=== PATIENT | female | born 2000 | race African-American/Black ===

== ENCOUNTER 2021-12-25 07:43 | Emergency (ER) | payer OTHER, SELFPAY ==
[~2021-12-25] VITALS: Ht 162.6 cm; Wt 60.1 kg
[2021-12-25 07:43] VITALS: BP 111/67
[2021-12-25] MEDS ORDERED: NOXI1TAB PO (07:57)
[2021-12-25] MEDS ORDERED: PRENMIS3 PO (07:57)
[2021-12-25 09:00] LABS: BASO % 0.7 % (0.0-1.0); EOS # 0.1 10^3/uL (0.0-0.5); EOS % 1.3 % (0.0-3.0); HEMATOCRIT 41.4 % (36.0-47.0); HEMOGLOBIN 13.7 g/dl (12.0-15.5); LYMPH # 1.6 10^3/uL (1.5-5.0); LYMPH % 25.9 % (24.0-44.0); MEAN CORPUSCULAR HEMOGLOBIN 31.1 pg (27.0-33.0); MEAN CORPUSCULAR HGB CONC 33.1 g/dl (32.0-36.5); MEAN CORPUSCULAR VOLUME 94.1 fl (80.0-96.0); MONO # 0.4 10^3/uL (0.0-0.8); MONO % 5.9 % (2.0-8.0); NEUTROPHILS # 4.1 10^3/uL (1.5-8.5); PLATELET COUNT, AUTOMATED 177 10^3/uL (150-450); WHITE BLOOD COUNT 6.1 10^3/uL (4.0-10.0)
[2021-12-25 09:04] LABS: BILIRUBIN, URINE MANUAL NEGATIVE (NEGATIVE); GLUCOSE, URINE (UA) MANUAL NEGATIVE (NEGATIVE); KETONE, URINE MANUAL NEGATIVE (NEGATIVE); UROBILINOGEN, URINE MANUAL NORMAL (NORMAL)
[2021-12-25 09:18] LABS: RBC, URINE TNTC /hpf (0-3); SQUAMOUS EPITHELIAL CELL URINE MOD AMOUNT /hpf (SMALL AMT)
[2021-12-25 09:19] LABS: BACTERIA, URINE SMALL AMOUNT; HYALINE CAST, URINE NONE SEEN /lpf (0-1)
[2021-12-25 09:43] LABS: BLOOD UREA NITROGEN 14 MG/DL (7-18); CALCIUM LEVEL 9.3 MG/DL (8.5-10.1); CARBON DIOXIDE LEVEL 29 MEQ/L (21-32); CHLORIDE LEVEL 109 MEQ/L (98-107); GLUCOSE, FASTING 81 MG/DL (70-100); HCG, SERUM QUANTITATIVE < 1.0 MIU/ML; POTASSIUM SERUM 3.8 MEQ/L (3.5-5.1); SODIUM LEVEL 142 MEQ/L (136-145)
== END 2021-12-25 11:08 | disposition left against medical advice (07) ==
LOC: M ED 07:43
DX: Z53.21 Procedure and treatment not carried out due to patient leaving prior to being seen by health care provider (principal)

== ENCOUNTER → 2021-12-25 | Outpatient (REF) | payer OTHER, SELFPAY ==
[~2021-12-25] MED LIST: NOXI1TAB PO; PRENMIS3 PO
[2021-12-25 17:40] LABS: APPEARANCE, URINE CLOUDY (CLEAR); BACTERIA, URINE AUTO 1+ (NEGATIVE); BILIRUBIN, URINE AUTO NEGATIVE (NEGATIVE); BLOOD, URINE BLOOD 3+ (NEGATIVE); COLOR, URINE AMBER (YELLOW); GLUCOSE, URINE (UA) AUTO NEGATIVE (NEGATIVE); KETONE, URINE AUTO NEGATIVE (NEGATIVE); LEUKOCYTE ESTERASE, URINE AUTO 1+ (NEGATIVE); NITRITE, URINE AUTO NEGATIVE (NEGATIVE); PROTEIN, URINE AUTO 2+ mg/dL (NEGATIVE); RBC, URINE AUTO TNTC /HPF (0-3); SPECIFIC GRAVITY URINE AUTO 1.021 (1.002-1.035); SQUAMOUS EPITHELIAL CELL UR AU 10 /HPF (0-6); WBC, URINE AUTO TNTC /HPF (0-3)
[2021-12-25 17:43] LABS: URINE PREG TEST NEGATIVE (NEGATIVE)
== END ==
LOC: M LAB REF 16:25
PROVIDERS: ATTEND Physician Assistant
DX: N39.0 Urinary tract infection, site not specified (principal)

== ENCOUNTER 2022-10-20 09:34 | Emergency (ER) | payer OTHER ==
[~2022-10-20] VITALS: Ht 162.6 cm; Wt 62.5 kg
[2022-10-20] MEDS ORDERED: ALBUTEROL 90 MCG/ACT 8GM HFA INHALER INH ONE (12:15)
[2022-10-20 12:51] LABS: RSV AMPLIFICATION NEGATIVE (NEGATIVE)
[2022-10-20] MEDS ORDERED: VENTAER INH (13:18)
[2022-10-20] MEDS ORDERED: GUAI100L6 PO (13:18)
[2022-10-20 13:22] VITALS: BP 121/75
== END 2022-10-20 13:26 | disposition home or self-care (01) ==
LOC: M ED 09:34
DX: O99.511 Diseases of the respiratory system complicating pregnancy, first trimester (principal); J20.9 Acute bronchitis, unspecified; R06.2 Wheezing; Z3A.14 14 weeks gestation of pregnancy

== ENCOUNTER 2023-01-17 09:55 | Outpatient (CLI) | payer OTHER ==
[~2023-01-17] VITALS: Ht 162.6 cm; Wt 74.1 kg
[~2023-01-17 09:55] MED LIST changes: +GUAI100L6 PO; +VENTAER INH
[2023-01-17 10:06] VITALS: BP 132/76
[2023-01-17] MEDS ORDERED: HOME MED LIST COMPLETE! XX SCH (10:10)
== END 2023-01-17 11:15 | disposition home or self-care (01) ==
LOC: M LDO 09:55
PROVIDERS: ATTEND Obstetrics & Gynecology
DX: O46.92 Antepartum hemorrhage, unspecified, second trimester (principal); Z3A.27 27 weeks gestation of pregnancy
CPT/HCPCS: 59025; G0463

== ENCOUNTER 2023-03-31 07:32 | Inpatient (IN) | payer OTHER ==
[~2023-03-31] VITALS: Ht 162.6 cm; Wt 84.6 kg
[2023-03-31] VITALS (18 sets, daily range): BP systolic 128–184; BP diastolic 61–104
[2023-03-31] MEDS ORDERED: FERR325T3 PO (07:57)
[2023-03-31] MEDS ORDERED: URSO300C3 PO (07:58)
[2023-03-31] MEDS ORDERED: HOME MED LIST COMPLETE! XX SCH (08:00)
[2023-03-31] MEDS ORDERED: CARBOPROST TROMETHAMINE 250 MCG/ML AMP IM PRN (08:50)
[2023-03-31] MEDS ORDERED: LIDOCAINE 1% MDV 20ML VIAL INFIL PRN (08:50)
[2023-03-31] MEDS: LR 1,000 ML IV SCH ×3 (08:50→23:57)
[2023-03-31] MEDS ORDERED: TRANEXAMIC ACID INJection 1,000 MG in NS 100 ML IV PRN (08:50)
[2023-03-31] MEDS ORDERED: OXYTOCIN DRIP 30 UNITS in IV 1 EA IV PRN ×4 (08:50)
[2023-03-31] MEDS ORDERED: METHYLERGONOVINE MALEATE 0.2MG/ML 1ML VIAL IM PRN (08:50)
[2023-03-31] MEDS: miSOPROStol 50MCG 1/2 TABLET BUC SCH ×4 (09:02→23:25)
[2023-03-31 09:23] LABS: HEMATOCRIT 32.6 % (36.0-47.0); HEMOGLOBIN 10.2 g/dl (12.0-15.5); MEAN CORPUSCULAR HEMOGLOBIN 26.5 pg (27.0-33.0); MEAN CORPUSCULAR HGB CONC 31.3 g/dl (32.0-36.5); MEAN CORPUSCULAR VOLUME 84.7 fl (80.0-96.0); PLATELET COUNT, AUTOMATED 241 10^3/uL (150-450); RED BLOOD COUNT 3.85 10^6/uL (4.00-5.40)
[2023-03-31 12:23] LABS: ALBUMIN 2.7 G/DL (3.2-5.2); ALKALINE PHOSPHATASE 180 U/L (46-116); ALT/SGPT 13 U/L (7.0-40); AST/SGOT 15 U/L (<34); BILIRUBIN,TOTAL 0.5 MG/DL (0.3-1.2); BLOOD UREA NITROGEN 6 MG/DL (9-23); CALCIUM LEVEL 8.9 MG/DL (8.5-10.1); CARBON DIOXIDE LEVEL 21 MMOL/L (20-31); CHLORIDE LEVEL 107 MMOL/L (98-107); CREATININE FOR GFR 0.54 MG/DL (0.55-1.30); GLOMERULAR FILTRATION RATE > 60.0 (>60); GLUCOSE, FASTING 78 MG/DL (60-100); POTASSIUM SERUM 3.9 MMOL/L (3.5-5.1); SODIUM LEVEL 139 MMOL/L (136-145); TOTAL PROTEIN 6.4 G/DL (5.7-8.2)
[2023-03-31 13:30] LABS: TOTAL PROTEIN,RANDOM URINE 15.7 MG/DL (0.0-14.0)
[2023-03-31 13:35] LABS: CREATININE,RANDOM URINE 138.3 MG/DL
[2023-03-31] MEDS: ursodioL 300MG CAP PO SCH (21:13)
[2023-03-31] MEDS ORDERED: NALBUPHINE HCL 1MG/0.1ML (100MG/10ML) MDV IV PRN (23:30)
[2023-04-01] VITALS (39 sets, daily range): BP systolic 116–190; BP diastolic 59–106; O2SAT 98
[2023-04-01] MEDS: ursodioL 300MG CAP PO SCH (08:35)
[2023-04-01] MEDS ORDERED: PROMETHAZINE 25MG/ML 1ML VIAL IV ONE (09:30)
[2023-04-01] MEDS ORDERED: NALBUPHINE HCL 1MG/0.1ML (100MG/10ML) MDV IV PRN (09:30)
[2023-04-01] MEDS: LR 1,000 ML IV SCH ×2 (12:18→18:50)
[2023-04-01] MEDS ORDERED: NALOXONE INJ 0.4MG/1ML VIAL IV PRN (12:35)
[2023-04-01] MEDS ORDERED: EPIDURAL/PCA KEYS XX PRN (12:35)
[2023-04-01] MEDS ORDERED: LR 500 ML IV PRN (12:35)
[2023-04-01] MEDS ORDERED: FENTANYL/ROPIVACAINE/NACL BAG 100 ML EPIDURAL SCH (12:35)
[2023-04-01] MEDS ORDERED: ePHEDrine SULFATE 25 MG/5 ML(5MG/ML) SYRINGE IVP PRN (12:35)
[2023-04-01] MEDS ORDERED: diphenhydrAMINE 50MG/ML VIAL IV PRN (12:35)
[2023-04-01] MEDS ORDERED: ONDANSETRON 4MG 2ML VIAL IV PRN ×2 (12:35→18:50)
[2023-04-01 18:38] LABS: CORD GAS ABE V -8.9; CORD GAS HCO3 V 20.7 MMOL/L; CORD GAS O2 SAT V 50.1 %; CORD GAS PCO2 V 59.9 mmHg; CORD GAS PH V 7.156 UNITS; CORD GAS PO2 V 24.9 mmHg; CORD GAS SBC V 16.4 MMOL/L; CORD GAS TCO2 V 22.5 MMOL/L
[2023-04-01 18:41] LABS: CORD GAS ABE A -8.7; CORD GAS HCO3 A 19.7 MMOL/L; CORD GAS O2 SAT A 76.3 %; CORD GAS PCO2 A 51.5 mmHg; CORD GAS PH A 7.2 UNITS; CORD GAS PO2 A 36.6 mmHg; CORD GAS SBC A 17.2 MMOL/L; CORD GAS TCO2 A 21.3 MMOL/L
[2023-04-01] MEDS ORDERED: METHYLERGONOVINE MALEATE 0.2MG/ML 1ML VIAL IM PRN (18:50)
[2023-04-01] MEDS: IBUPROFEN 800 MG TAB PO SCH (18:50)
[2023-04-01] MEDS ORDERED: METOCLOPRAMIDE INJ 10MG/2ML VIAL IV PRN (18:50)
[2023-04-01] MEDS ORDERED: DIBUCAINE 1% OINTMENT 30GM TOP PRN (18:50)
[2023-04-01] MEDS ORDERED: OXYTOCIN DRIP 30 UNITS in IV 1 EA IV SCH (18:50)
[2023-04-01] MEDS ORDERED: RHOGAM 300MCG (1500IU) INJ IM SCH (18:50)
[2023-04-01] MEDS ORDERED: DOCUSATE SODIUM 100MG CAPSULE PO PRN (18:50)
[2023-04-01] MEDS: ACETAMINOPHEN 500 MG TAB PO SCH (20:56)
[2023-04-02] MEDS: ACETAMINOPHEN 500 MG TAB PO SCH ×4 (00:12→20:00)
[2023-04-02] MEDS: IBUPROFEN 800 MG TAB PO SCH ×3 (02:05→18:56)
[2023-04-02] MEDS: LR 1,000 ML IV SCH (02:06)
[2023-04-02 06:00] VITALS: BP 111/59; O2SAT 98
[2023-04-02 06:53] LABS: HEMATOCRIT 26.4 % (36.0-47.0); HEMOGLOBIN 8.3 g/dl (12.0-15.5); MEAN CORPUSCULAR HEMOGLOBIN 26.3 pg (27.0-33.0); MEAN CORPUSCULAR HGB CONC 31.4 g/dl (32.0-36.5); MEAN CORPUSCULAR VOLUME 83.8 fl (80.0-96.0); PLATELET COUNT, AUTOMATED 181 10^3/uL (150-450); RED BLOOD COUNT 3.15 10^6/uL (4.00-5.40); WHITE BLOOD COUNT 21.5 10^3/uL (4.0-10.0)
[2023-04-02] MEDS ORDERED: PRENATAL VITAMINS CHEWABLE TABLET PO SCH (09:00)
[2023-04-02] MEDS: PRENATAL VITAMINS CHEWABLE TABLET PO SCH (09:31)
[2023-04-02 10:00] VITALS: BP 132/68; O2SAT 97
[2023-04-02 15:15] VITALS: BP 118/66; O2SAT 98
[2023-04-02 18:00] VITALS: BP 112/61; O2SAT 97
[2023-04-02 22:00] VITALS: BP 125/55; O2SAT 99
[2023-04-03] MEDS: ACETAMINOPHEN 500 MG TAB PO SCH ×2 (00:43→06:52)
[2023-04-03 02:00] VITALS: BP 120/66; O2SAT 97
[2023-04-03] MEDS: IBUPROFEN 800 MG TAB PO SCH ×2 (02:44→11:28)
[2023-04-03 06:00] VITALS: BP 126/60; O2SAT 96
[2023-04-03] MEDS: PRENATAL VITAMINS CHEWABLE TABLET PO SCH (07:53)
[2023-04-03] MEDS ORDERED: MEASLES,MUMPS,RUBELLA VACCINE INJ (MMR-II) SC.IMMUN ONE (09:00)
== END 2023-04-03 11:34 | disposition home or self-care (01) | DRG 807 ==
LOC: M LDI 07:32 → M OBS 04-01 20:18
PROVIDERS: ADMIT Advanced Practice Midwife; ATTEND Obstetrics & Gynecology
PROC: 3E0P7GC Introduction of Other Therapeutic Substance into Female Reproductive, Via Natural or Artificial Opening (ICD-10-PCS; 2023-03-31)
PROC: 10E0XZZ Delivery of Products of Conception, External Approach (ICD-10-PCS; principal; 2023-04-01)
DX: O26.643 Intrahepatic cholestasis of pregnancy, third trimester (principal); Z3A.37 37 weeks gestation of pregnancy; O99.02 Anemia complicating childbirth; D64.9 Anemia, unspecified; O69.81X0 Labor and delivery complicated by cord around neck, without compression, not applicable or unspecified; Z37.0 Single live birth